=== PATIENT | female | born 1945 | race Caucasian/White ===

== ENCOUNTER 2023-12-01 08:01 | Outpatient (CLI) | payer MEDICARE, SELFPAY ==
--- NOTE | 2023-12-06 10:47 | WPDNEUROLOGY ---
Neurology EEG Report General Information Date of Study: 12/01/23 TEST Eeg DIAGNOSIS syncopal episode CONDITION OF RECORDING awake,drowsy and asleep EEG NUMBER [id number] CLINICAL HISTORY patient reports she has had 2 episodes of losing consciousness. Feels a little dizzy and lightheaded a minute or 2 before then and seems to be fine afterwards as well. EEG DESCRIPTION Basic resting occipital frequency consists of well-organized low to medium voltage 9 to 11 hertz per 2nd alpha admixed with low-voltage 15 to 18 hertz per 2nd beta. Normal julia posterior gradient is noted. Low-voltage beta activity seen diffusely admixed with waxing and waning posterior alpha rhythm. Bilateral symmetrical sleep activity is noted. Photic stimulation produced normal drive. Hyperventilation not done. Non paroxysmal. Nonfocal. Nonlateralizing. IMPRESSION Normal record clinical correlation recommended.
== END 2023-12-01 08:02 | disposition home or self-care (01) ==
PROVIDERS: PCP Family Medicine; Visit Provider Family Medicine
DX: R55 Syncope and collapse (principal); E83.52 Hypercalcemia; I10 Essential (primary) hypertension; Z86.73 Personal history of transient ischemic attack (TIA), and cerebral infarction without residual deficits
CPT/HCPCS: 95816